=== PATIENT | male | born 1970 | race Two or more races ===

== ENCOUNTER 2025-03-11 15:54 | Emergency (ER) | payer MEDICAID, MEDICARE, OTHER ==
[~2025-03-11] VITALS: Ht 177.8 cm; Wt 98.1 kg
[~2025-03-11 15:54] MED LIST: ATARAX; CITA40TA12; QUET400T
--- NOTE | 2025-03-11 16:50 | DVH ---
CHEST RADIOGRAPH Indication: cough x 1 month Technique: Frontal and lateral view of the chest was obtained Comparison: None FINDINGS: Lines and Tubes: None Lungs: Clear Pleura: No effusion. No pneumothorax. Cardiomediastinal contours: Unremarkable Bones: Unremarkable IMPRESSION: 1. No evidence of acute disease.
[2025-03-11 16:51] VITALS: BP 126/81; PULSE 103; RESP 16; TEMP 98.5; O2SAT 96
[2025-03-11 17:08] LABS: Basophils # (auto) 0.1 10 ^3/uL (0-0.2); Basophils % (auto) 0.7 % (0.0-2.0); Eosinophils # (auto) 0.6 10 ^3/uL (0-0.8); Eosinophils % (auto) 7.2 % (0.0-7.0); Hematocrit 41.1 % (41.0-53.0); Lymphocytes # (auto) 2.3 10 ^3/uL (0.4-5.4); Lymphocytes % (auto) 28.2 % (10.0-50.0); Mean Corpuscular Hemoglobin 31.8 pg (28.0-32.0); Mean Corpuscular Hgb Conc. 34.1 g/dL (32.0-36.0); Mean Corpuscular Volume 93.4 fL (80.0-100.0); Monocytes # (auto) 0.4 10 ^3/uL (0-1.3); Monocytes % (auto) 5.4 % (0.0-12.0); Neutrophils # (auto) 4.8 10 ^3/uL (1.6-8.6); Neutrophils % (auto) 58.5 % (37.0-80.0); Nucleated Red Blood Cells % 0.1 %; Platelet Count (auto) 227 10^3/uL (140-450); Red Cell Distribution Width 13.3 % (11.8-14.3); White Blood Cell 8.2 10^3/uL (4.4-10.8)
[2025-03-11 17:20] LABS: Chloride 107 mmol/L (98-107); Potassium 3.7 mmol/L (3.5-5.1); Sodium 141 mmol/L (136-145)
[2025-03-11 17:21] LABS: Anion Gap 10 (5-15); Calcium 10.1 mg/dL (8.7-10.4); Carbon Dioxide 24 mmol/L (20-31)
[2025-03-11 17:26] LABS: BUN/Creatinine Ratio 9.5 (10.0-20.0); Blood Urea Nitrogen 12 mg/dL (9-23)
--- NOTE | 2025-03-11 17:52 | ED.PDOC ---
SOB-HPI HPI Comments 54-year-old smoker with history of anxiety, schizophrenic, hepatitis presents w/ the chief complaint of an acute cough x 2 weeks. Also reports 1 episode of red blood this morning described as "Jello. Patient informed his parents of the symptoms and was advised to the ER for evaluation. Patient has never had this before. Coughs is aggravated in the evening prior to sleep and has not tried OTC medications for the symptoms listed above. Denies fevers chills night sweats unintentional weight loss Denies persistent chest pain, shortness of breath, leg swelling Denies history of asthma nor any breathing conditions Denies history of pneumonia Denies recent international travel Denies recent surgery Denies hx of cancer Denies CP/SOB Chief Complaint: Cough Time Seen by MD: 17:30 Primary Care Provider: SERA Gomez notes: Nurses Notes, Medications, Allergies Information Source: Patient Mode of Arrival: Ambulatory Severity: Moderate Timing: Hours Duration: Since onset, Hours Context: At Rest PE Risk Factors: None History of: Anxiety Prehospital treatment: None Associated Signs and Symptoms: Cough (With blood) If cough with SOB: Productive, Bloody Past Medical History PAST MEDICAL HISTORY: Anxiety, Schizophrenia Past Medical History (Other): Hepatitis Surgical History: Denies all surgeries Family History Family History: Reviewed,noncontributory to illness, Unknown Social History Smoker: Cigarettes, Other (Vape use as well) Alcohol: Denies ETOH Use Drugs: Denies Drug Use Lives In: Home Constitutional: denies: chills, diaphoresis, fatigue, fever, malaise, sweats, weakness, others EENTM: denies: blurred vision, double vision, ear bleeding, ear discharge, ear drainage, ear pain, ear ringing, eye pain, eye redness, hearing loss, mouth pain, mouth swelling, nasal discharge, nose bleeding, nose congestion, nose pain, photophobia, tearing, throat pain, throat swelling, voice changes, others Respiratory: reports: cough (With blood); denies: hemoptysis, orthopnea, SOB at rest, shortness of breath, SOB with excertion, stridor, wheezing, others Cardiovascular: denies: chest pain, dizzy spells, diaphoresis, Dyspnea on exertion, edema, irregular heart beat, left arm pain, lightheadedness, palpitations, PND, syncope, others Gastrointestinal: denies: abdomen distended, abdominal pain, blood streaked bowels, constipated, diarrhea, dysphagia, difficulty swallowing, hematemesis, melena, nausea, poor appetite, poor fluid intake, rectal bleeding, rectal pain, vomiting, others Genitourinary: denies: burning, dysuria, flank pain, frequency, hematuria, incontinence, penile discharge, penile sore, pain, testicle pain, testicle swelling, urgency, others Neurological: denies: dizziness, fainting, headache, left sided numbness, left sided weakness, numbness, paresthesia, pre-existing deficit, right sided numbness, right sided weakness, seizure, speech problems, tingling, tremors, weakness, others Musculoskeletal: denies: back pain, gout, joint pain, joint swelling, muscle pain, muscle stiffness, neck pain, others Integumetry: denies: bruises, change in color, change in hair/nails, dryness, laceration, lesions, lumps, rash, wounds, others Allergic/Immunocompromised: denies: Difficulty Healing, Frequent Infections, Hives, Itching, others Hematologic/Lymphatic: denies: anemia, blood clots, easy bleeding, easy bruising, swollen glands, others Endocrine: denies: excessive hunger, excessive sweating, excessive thirst, excessive urination, flushing, intolerance to cold, intolerance to heat, unexplained weight gain, unexplained weight loss, others Psychiatric: denies: anxiety, bipolar disorder, depression, hopeless, panic disorder, schizophrenia, sleepless, suicidal, others All Other Systems: Reviewed and Negative Physical Exam General Appearance: No Apparent Distress, Normal HEENT: Normal ENT Inspection, Pharynx Normal, TMs Normal Neck: Full Range of Motion, Non-Tender, Normal, Normal Inspection Respiratory: Chest Non-Tender, Lungs Clear, No Accessory Muscle Use, No Respiratory Distress, Normal Breath Sounds Cardiovascular: No Edema, No JVD, No Murmur, No Gallop, Normal Peripheral Pulses, Regular Rate/Rhythm Breast Exam: Deferred Gastrointestinal: No Organomegaly, Non Tender, No Pulsatile Mass, Normal Bowel Sounds, Soft Genitalia: Deferred Pelvic: Deferred Rectal: Deferred Extremities: No calf tenderness, Normal capillary refill, Normal inspection, Normal range of motion, Non-tender, No pedal edema Musculoskeletal : Apperance: Normal Neurologic: Alert, healthcare customer service II-XII nml as Tested, No Motor Deficits, Normal Affect, Normal Mood, No Sensory Deficits Cerebellar Function: Normal Reflexes: Normal Skin: Dry, Normal Color, Warm Lymphatic: No Adenopathy Was a procedure done? Was a procedure done?: No Differential Dx Differential Diagnosis: Asthma, Bronchitis, COPD, Pneumonia, Pulmonary Embolism, Other X-Ray, Labs, Meds, VS Vital Signs Date Time Temp Pulse Resp B/P (MAP) Pulse Ox O2 Delivery O2 Flow Rate FiO2 03/11/25 16:51 103 16 96 Room Air 03/11/25 16:51 98.5 103 17 126/81 (96) 96 98.5 03/11/25 16:17 98.0 109 18 133/85 (101) 96 98.0 Lab Test 03/11/25 16:50 Range/Units White Blood Count 8.2 4.4-10.8 10^3/uL Red Blood Count 4.40 L 4.5-5.90 10^6/uL Hemoglobin 14.0 13.5-17.5 g/dL Hematocrit 41.1 41.0-53.0 % Mean Corpuscular Volume 93.4 80.0-100.0 fL Mean Corpuscular Hemoglobin 31.8 28.0-32.0 pg Mean Corpuscular Hemoglobin Concent 34.1 32.0-36.0 g/dL Red Cell Distribution Width 13.3 11.8-14.3 % Platelet Count 227 140-450 10^3/uL Mean Platelet Volume 10.4 6.9-10.8 fL Neutrophils (%) (Auto) 58.5 37.0-80.0 % Lymphocytes (%) (Auto) 28.2 10.0-50.0 % Monocytes (%) (Auto) 5.4 0.0-12.0 % Eosinophils (%) (Auto) 7.2 H 0.0-7.0 % Basophils (%) (Auto) 0.7 0.0-2.0 % Neutrophils # (Auto) 4.8 1.6-8.6 10 ^3/uL Lymphocytes # (Auto) 2.3 0.4-5.4 10 ^3/uL Monocytes # (Auto) 0.4 0-1.3 10 ^3/uL Eosinophils # (Auto) 0.6 0-0.8 10 ^3/uL Basophils # (Auto) 0.1 0-0.2 10 ^3/uL Nucleated Red Blood Cells 0.1 % D-Dimer, Quantitative < 0.19 0.0-0.49 mg/L FEU Sodium Level 141 136-145 mmol/L Potassium Level 3.7 3.5-5.1 mmol/L Chloride Level 107 98-107 mmol/L Carbon Dioxide Level 24 20-31 mmol/L Anion Gap 10 5-15 Blood Urea Nitrogen 12 9-23 mg/dL Creatinine 1.26 0.700-1.30 mg/dL Glomerular Filtration Rate Calc 68 >90 mL/min BUN/Creatinine Ratio 9.5 L 10.0-20.0 Serum Glucose 179 H 74-106 mg/dL Calcium Level 10.1 8.7-10.4 mg/dL Current Medications Medications (Trade) Dose Ordered Sig/Shin Route Start Time Stop Time Status Last Admin Ceftriaxone Sodium 50 ml @ 100 mls/hr ONCE ONCE IV 03/11/25 19:45 03/11/25 20:14 DC 03/11/25 19:44 PATIENT: BALTA FOFANA ACCT: [id number] UNIT: [id number] : 1970 LOC: ER ROOM / BED: / AGE / SEX: 54 / M ADM STATUS: REG ER SERVICE 24 ORDERING PHYSICIAN: CHRIS PERES NP PROCEDURE(s): CXR2 - CHEST TWO VIEWS ROUTINE REASON: cough x 1 month ORDER NUMBER(s): [id number], ACCESSION NUMBER(s): [id number] CHEST RADIOGRAPH Indication: cough x 1 month Technique: Frontal and lateral view of the chest was obtained Comparison: None FINDINGS: Lines and Tubes: None Lungs: Clear Pleura: No effusion. No pneumothorax. Cardiomediastinal contours: Unremarkable Bones: Unremarkable IMPRESSION: 1. No evidence of acute disease. ATED BY: THIAGO BRISENO MD DICTATED DATE/TIME: 03/11/251647 SIGNED BY: THIAGO BRISENO MD SIGNED DATE/TIME: 03/11/251647 CC: X-Ray, Labs, Meds, VS Comment 54-year-old smoker with history of anxiety, schizophrenic, hepatitis presents w/ the chief complaint of an acute cough x 2 weeks. Patient arrives alert and oriented, ABC's intact, afebrile, vital signs stable, saturating well in room air After ROS and physical examination, differentials considered but not limited to: PE, TB, Malignancy, Bronchitis, PNA Peripheral IV insertion+, ROCEPHIN 1 G IV ORDER, labs were ordered. Labs in the ED showed normal wbc, cbc, hgb, d-dimer, electrolytes reassuring CXR ordered: No evidence of acute disease. CT chest ordered: 1. Mild bilateral peribronchial cuffing suggestive of bronchitis or atypical pneumonia. No lobar consolidation or pleural effusion. No hilar or mediastinal lymphadenopathy. 2. Right basilar streaky opacities that may represent subsegmental atelectasis or parenchymal scarring. Prescribed p.o. antibiotics for presentation of symptoms Complete course of antibiotic therapy even if symptoms improve or resolve. There should be no leftover antibiotics as this can lead to antibiotic resistant bacteria and even worse infection. Patient verbalized understanding. Potential side effects discussed with patient including abdominal pain, nausea, diarrhea. Additional MDM Review of External, Non-ED records: External records reviewed. July 29 2011 Discussion with independent historian (EMS, family) history obtained from the patient at bedside Chronic conditions affecting care: Anxiety, schizophrenia, hepatitis Social determinants of health affecting care: Vape and tobacco use, denies alcohol and substance use Consideration of admission (observation or admission): I considered escalation of care to admission for this patient, however given the reassuring workup, the patient is safe for outpatient management. Discussion with the Radiology: not applicable Tests considered but not performed: not applicable Time of 1ST Reevaluation: 18:00 Reevaluation 1ST: Unchanged Time of 2ND Reevaluation: 18:34 Reevaluation 2ND: Improved Patient Education/Counseling: Diagnosis, Treatment, Prognosis Family Education/Counseling: No Family Present Change of Shift?: Yes (Endorsed patient from [employer] [facility] at shift change) Departure 1 Departure Time of Disposition: 18:42 Impression: Primary Impression: Acute bronchitis Qualified Codes: J20.9 - Acute bronchitis, unspecified Additional Impression: Hemoptysis Disposition: HOME / SELF CARE / HOMELESS Condition: Stable e-Prescriptions Prednisone (Prednisone) 20 Mg Tab 20 MG PO BID for 5 Days, #10 TAB 0 Refills Prov: BRADLEY RIVAS 03/11/25 Azithromycin (Azithromycin) 250 Mg Tab 250 MG PO DAILY MDD 500 for 5 Days, #6 TAB 0 Refills 2 TABLETS ORALLY ON DAY ONE, THEN 1 TABLET ORALLY DAILY FOR 4 DAYS Prov: BRADLEY RIVAS 03/11/25 Discharged With: Self Critical Care Note Critical Care Time?: No Stability Stability form required: No Heart Score Heart Score: Heart Score Response (Comments) Value History N/A 0 EKG N/A 0 Age N/A 0 Risk Factors N/A 0 Troponin N/A 0 Total 0 I personally scribed for CHRIS PERES NP ([email or web address]) on 03/11/25 at 17:52. Electronically submitted by Lee Mendoza ([email or web address]). CHRIS PERES NP Mar 11, 2025 17:52 BRADLEY RIVSA Mar 11, 2025 18:49
[2025-03-11 18:09] LABS: Glucose 179 mg/dL (74-106)
[2025-03-11] MEDS ORDERED: AZIT-43 PO (18:47)
[2025-03-11] MEDS ORDERED: PRED20TA2 PO (18:47)
[2025-03-11] MEDS: IOHEXOL 300 MG/ML 100ML BOTTLE IJ ONE (18:51)
--- NOTE | 2025-03-11 19:27 | DVH ---
EXAM: CT CHEST WITH CONTRAST; DATE: 03/11/2025 06:29 PM HISTORY: subacute cough w/ Hemoptysis x 1 this am COMPARISON: Chest radiograph dated 03/11/2025 TECHNIQUE: Axial images were obtained and reformatted in coronal and sagittal planes. All CT scans a [facility] facility are performed using dose modulation techniques as appropriate to a performed exam including the following: Automated exposure control was utilized; adjustment of the MA and/or KV according to patient size; and use of iterative reconstruction technique. CT Dose: CTDI volume is 21.85 mGy. Dose-length product is 768.17 mGy*cm FINDINGS: Lower neck: Right basilar streaky opacities are seen.. Cardiomediastinal: Unremarkable. Lungs: Right basilar streaky opacities are noted. No pleural effusion or pneumothorax.. Bones and Soft Tissues: No acute abnormality. Upper Abdomen: No acute abnormality. Other: None. IMPRESSION: 1. Mild bilateral peribronchial cuffing suggestive of bronchitis or atypical pneumonia. No lobar cons olidation or pleural effusion. No hilar or mediastinal lymphadenopathy. 2. Right basilar streaky opacities that may represent subsegmental atelectasis or parenchymal scarrin jesica
[2025-03-11] MEDS: cefTRIAXone 1GM/50ML D5W 50 ML IV ONE (19:44)
== END 2025-03-11 20:05 | disposition home or self-care (01) ==
LOC: ER 15:54
DX: J20.9 Acute bronchitis, unspecified (principal); R04.2 Hemoptysis; F17.210 Nicotine dependence, cigarettes, uncomplicated; F17.290 Nicotine dependence, other tobacco product, uncomplicated; F41.9 Anxiety disorder, unspecified; F20.9 Schizophrenia, unspecified
CPT/HCPCS: 36415; 71046; 71260; 80048; 85025; 85379; 96365; 99285; J0696; Q9967